=== PATIENT | female | born 1970 | race Caucasian/White ===

== ENCOUNTER 2023-02-18 21:58 | Emergency (ER) | payer OTHER, SELFPAY ==
[2023-02-18 22:12] VITALS: BP 164/96; PULSE 109; RESP 18; TEMP 37.1; O2SAT 95; BMI 49.2
--- NOTE | 2023-02-18 23:11 | PC.NURSE ---
Pt states that she is a former smoker and gets bronchitis yearly but usually resolves with ATB but this time has not gotten any better. pt states that she is on her 3rd round of ATB and continues to have a dry, hacky cough. Pt states that she does have yellow nasal drainage.
--- NOTE | 2023-02-18 23:14 | XR_ITS ---
[facility] [place] [id number] Patient Name: HAKEEM SWAIN MRN: [id number] date: 1970 Sex: F Assigned Patient Location: ER Current Patient Location: ER Accession/Order Number: [id number] Exam Date: 02/18/2023 23:20 Report Date: 02/18/2023 23:40 At the request of: KRISTINE CHAN Procedure: XR chest 2V XR chest 2V 02/18/2023 11:20 PM EST CLINICAL INDICATION: Cough COMPARISON: 04/14/2019 TECHNIQUE: PA and lateral views of the chest. FINDINGS: There are no tubes or implants noted. The cardiomediastinal silhouette and pulmonary vasculature are within normal limits. No focal parenchymal opacities. No pneumothorax or pleural effusion. No displaced rib fractures. Osseous structures demonstrate degenerative changes. Soft tissues are grossly normal. XR/XR chest 2V IMPRESSION: No acute cardiopulmonary abnormality. Electronically authenticated by: YEHUDA MEREDITH Date: 02/18/2023 23:40
--- NOTE | 2023-02-18 23:40 | ED_ITS ---
HPI - URI/Sore Throat General Chief Complaint: Upper Respiratory Infection Stated Complaint: URTI Time Seen by Provider: 02/18/23 23:40 Source: patient Limitations: no limitations History of Present Illness HPI Narrative: presents complaining of ongoing cough for a month. 2 courses of antibiotics. Has improved but not resolved and now has sinus pressure and drainage. Not short of breath. No fever MD elicited complaint: Reports cough Related Data Home Medications Medication Instructions Recorded Confirmed albuterol sulfate 90 mcg/actuation inhalation 02/18/23 aerosol inhaler azithromycin 250 mg tablet mg 02/18/23 cefdinir 300 mg capsule mg 02/18/23 etodolac 200 mg capsule mg 02/18/23 fexofenadine 180 mg tablet mg 02/18/23 methocarbamol 750 mg tablet mg 02/18/23 solifenacin 10 mg tablet mg PO 02/18/23 zolpidem 10 mg tablet mg 02/18/23 Allergies Allergy/AdvReac Type Severity Reaction Status Date / Time No Known Drug Allergies Allergy Verified 02/18/23 22:15 Review of Systems ROS Status of ROS 10 or more systems reviewed and unremark able except as noted in history and below Exam Constitutional Vital Signs, click to edit/add: Last Vital Signs Temp 98.7 F 02/18/23 22:12 Pulse 109 H 02/18/23 22:12 Resp 18 02/18/23 22:12 BP 164/96 H 02/18/23 22:12 Pulse Ox 95 02/18/23 22:12 O2 Del Method Room Air 02/18/23 22:12 Common normals: no apparent distress, average body habitus, oriented x3 and no limitations Eye Common normals: PERRL and EOMs intact bilaterally Respiratory Common normals: normal respiratory effort and no retractions Cardio Common normals: regular rate, regular rhythm, S1 normal heart sound and S2 normal heart sound GI Common normals: Normal to inspection, nondistended, normoactive bowel sounds present, soft to palpation and non-tender Extremity Common normals: normal to inspection and full ROM Neuro Common normals: oriented x3, CN's II-XII intact bilaterally, moves all extremiti es and no focal motor deficits Psych Appearance: grossly normal Course Vital Signs Vital signs: Vital Signs Temperature 98.7 F 02/18/23 22:12 Pulse Rate 109 H 02/18/23 22:12 Respiratory Rate 18 02/18/23 22:12 Blood Pressure 164/96 H 02/18/23 22:12 Pulse Oximetry 95 02/18/23 22:12 Oxygen Delivery Method Room Air 02/18/23 22:12 Temperature 98.7 F 02/18/23 22:12 Pulse Rate 109 H 02/18/23 22:12 Respiratory Rate 18 02/18/23 22:12 Blood Pressure 164/96 H 02/18/23 22:12 Pulse Oximetry 95 02/18/23 22:12 Oxygen Delivery Method Room Air 02/18/23 22:12 MDM - URI/Sore Throat MDM Narrative Medical decision making narrative: patient presents complaining of sinus pressure and drainage. Treated with 2 courses of antibiotics for bronchitis. States she continues to cough despite the antibiotics. No headache or fever. cxray is clear. she was on a course of prednisone and states this did help while she was on it. Discussed plans to change antibiotics for her sinus pressure and drainage and restart prednisone for her cough. She is to follow up with her doctor for recheck Discharge Plan Discharge Chief Complaint: Upper Respiratory Infection Clinical Impression: Upper respiratory infection, Acute maxillary sinusitis Prescriptions / Home Meds: No Action etodolac 200 mg capsule azithromycin 250 mg tablet fexofenadine 180 mg tablet methocarbamol 750 mg tablet zolpidem 10 mg tablet albuterol sulfate 90 mcg/actuation HFA aerosol inhaler INHALATION cefdinir 300 mg capsule solifenacin 10 mg tablet PO Referrals: Lavon Simon MD [Primary Care Provider] - 1 week
[2023-02-18] MEDS: PREDNISONE 20 MG TABLET 40 MG PO (23:55)
[2023-02-18] MEDS: DOXYCYCLINE MONOHYDRATE 100 MG CAPSULE PO (23:55)
[2023-02-19 00:09] VITALS: BP 130/80; PULSE 89; RESP 18; O2SAT 98
== END 2023-02-19 00:08 | disposition home or self-care (01) ==
LOC: ER 22:11
PROVIDERS: Emergency Provider Internal Medicine; PCP Family Medicine
DX: J06.9 Acute upper respiratory infection, unspecified (principal); J01.00 Acute maxillary sinusitis, unspecified; Z79.899 Other long term (current) drug therapy
CPT/HCPCS: 71046; 99283

== ENCOUNTER 2023-03-16 16:09 | Emergency (ER) | payer OTHER, SELFPAY ==
--- OUTSIDE RECORDS SUMMARY | 2023-03-16 16:14 | XMS_ITS | CCD ---
Author Name Unknown Address [address] [place] [address] Organization [facility] Care Team Providers Care Studio Data Analyst Name Role Phone ENDER, MARYLIN Admitting Unavailable ENDER, MARYLIN Attending Unavailable NADERER, DR AIDAN Quezada Primary Care Unavailable ENDER, MARYLIN Admitting Unavailable ENDER, MARYLIN Attending Unavailable NADERER, DR AIDAN Quezada Primary Care Unavailable ENDER, MARYLIN Admitting Unavailable ENDER, MARYLIN Attending Unavailable NADERER, DR AIDAN Quezada Primary Care Unavailable NADERER, DR AIDAN Quezada Primary Care Unavailable HAY, DR PEREZ Admitting Unavailable HAY, DR PEREZ Attending Unavailable HAY, DR PEREZ Consulting Unavailable ENDER, MARYLIN Admitting Unavailable ENDER, MARYLIN Attending Unavailable NADERER, DR AIDAN Quezada Primary Care Unavailable ENDER, MARYLIN Consulting Unavailable WORKMAN, SUMMER M Attending Unavailable WORKMAN, SUMMER M Referring Unavailable Workman, Summer M Attending Unavailable Workman, Summer M Admitting Unavailable NadererAidan Primary Care Unavailable Problems Active Problems Problem Classification Problem Date Documented Da te Episodic/Chronic Other lower respiratory disease (1 source) Shortness of breath; Translations: [Shortness of breath] Onset: 01-31-2023 Episodic Other nutritional; endocrine; and metabolic disorders (1 source) Obesity, unspecified; Translations: [OBESITY UNSPECIFIED] Onset: 07-21-2021 Chronic Other nutritional; endocrine; and metabolic disorders (1 source) Body mass index (BMI) 40.0-44.9, adult; Translations: [BODY MASS INDEX BMI 40.0-44.9 ADULT] Onset: 07-21-2021 Chronic Unclassified (3 sources) LOW BACK PAIN, UNSPECIFIED; Translations: [LOW BACK PAIN, UNSPECIFIED] Onset: 08-01-2021 Unclassified (2 sources) CONTACT W/AND (SUSP) EXPOS COVID-19; Translations: [CONTACT W/AND (SUSP) EXPOS COVID-19] Onset: 02-28-2021 Viral infection (1 source) COVID-19; Translations: [COVID-19] Onset: 02-28-2021 Past or Other Problems Problem Classification Problem Date Documented Da te Episodic/Chronic Other non-traumatic joint disorders (1 source) Pain in left knee; Translations: [PAIN IN LEFT KNEE] Onset: 07-21-2021 Episodic Other non-traumatic joint disorders (1 source) Pain in right knee; Translations: [PAIN IN RIGHT KNEE] Onset: 07-21-2021 Episodic Unclassified (1 source) LOW BACK PAIN, UNSPECIFIED; Translations: [LOW BACK PAIN, UNSPECIFIED] Onset: 08-01-2021 Unclassified (1 source) CONTACT W/AND (SUSP) EXPOS COVID-19; Translations: [CONTACT W/AND (SUSP) EXPOS COVID-19] Onset: 02-26-2021 Results Test Name Value Interpretation Reference Range Facility D-Dimer High Sensitivityon 1 04-03-2022 D-Dimer High Sensitivity < 200 Normal 0-243 [facility] Comment on above: Result Comment: The reference range for D-dimer is <243 ng/mL D-dimer units. D-dimer results must be used in conjunction with a clinical pretest probability (PTP) assessment model for deep vein thrombosis (DVT) and pulmonary embolism (PE). Results <230 ng/mL d-dimer units can be used as a negative predictor in patients with low or moderate probability for DVT/PE. Results above the exclusion threshold of 230 ng/ml D-dimer units for DVT/PE may indicate the need for further diagnostic testing. D-Dimer can be increased in hospitalized patients due to co-morbid conditions. A hematocrit value greater than 55% may lead to inaccurate results in coagulation testing. Patients having hematocrit values >55% require a special collection tube for coagulation studies. Please contact the laboratory at [phone] for redraw instructions. PERFORMED BY: [facility] [place] [id number] PATHOLOGIST AGRICULTURAL TECHNICIAN RAZ MATOS M.D. Performed By: #### D DIMER #### [address] XR CHEST 2 VIEWSon 3 XR CHEST 2 VIEWS EXAMINATION/TECHNIQU E: XR CHEST 2 VIEWS HISTORY: Cough COMPARISON: None RESULT: No focal consolidation. No pleural effusion. No pneumothorax. Normal cardiomediastinal silhouette. No acute osseous findings. IMPRESSION: No acute radiographic abnormality. ELECTRONICALLY SIGNED BY: Narendra Crane MD Normal Not Available [facility]-19 PCR ([facility]on SARS-CoV-2 (COVID-19) RNA CALEB+probe Ql (Unsp spec) Detected Critically abnormal NOT DETECTED [facility] Comment on above: Result Comment: This test is not yet approved or cleared by the [place] FDA. When there are no FDA-approved or cleared tests available, and other criteria are met, FDA can make tests available under an emergency access mechanism called an Emergency Use Authorization (EUA). The EUA for this test is supported by the Administrative Intern of Health and Human Service's (HHS's) declaration that circumstances exist to justify the emergency use of in vitro diagnostics for the detection and/or diagnosis of the virus that causes COVID-19. This EUA will remain in effect (meaning this test can be used) for the duration of the COVID-19 declaration justifying emergency of IVDs, unless it is terminated or revoked by FDA (after which the test may no longer be used). Performed By: #### C COUNTS INCLUDE 234 BEDS AT THE [facility] #### [facility] [address] [place] [address] Dr. Abraham Fournier Lab Reportson 09-15-2019 Lab Reports [id number] 0CD:127 Normal [facility] Coding Summary.on 09-13-2019 Coding Summary. CODING DATE: 09/13/2019 FINAL [facility] STATUS: Home (Routine DC) PAYOR: Medicaid EA DESCRIPTION 0999 UNASSIGNED ADMIT DX: REASON FOR VISIT DX: Z01.812 Encounter for preprocedural laboratory examination FINAL DX: PRINCIPAL: Z01.812 Encounter for preprocedural laboratory examination SECONDARY: Z11.59 Encounter for screening for other viral diseases R19.4 Change in bowel habit R10.84 Generalized abdominal pain PYMT PROC EAPG STAT DESCRIPTION DOCTOR NAME DATE NOTE: The code number assigned matches the documented diagnosis and / or procedure in the patient's chart. However, the narrative phrase printed from the coding software may appear abbreviated, or result in slightly different terminology. Coded By: Kaleigh Clinton Date Saved: 09/13/2019 12:27 pm [facility] Physician Orderon 09-05-2019 Physician Order [id number] 0CD:127 [facility] Reference Lab Reporton 09-04 Reference Lab Report [id number] .00CD:127 [facility] Pre-Authorization for Medica l Treatmenton 08-25-2019 Pre-Authorization for Medical Treatment [id number] CD:127 [facility] Ambulatory Clinical Summaryo n 08-13-2019 Ambulatory Clinical Summary {[id number]}CD:[id number] [facility] Consenton 08-13-2019 Consent [id number] 0CD:127 [facility] Physician Orderon 08-13-2019 Physician Order [id number] 0CD:127 [facility] Encounters Encounter Date Encounter Type Care Provider Facility Start: 01-31-2023 End: 02-01-2023 ambulatory SUMMER M WORKMAN Not Available Start: 11-11-2021 ambulatory MARYLIN ENDER Facility :[facility] Start: 08-01-2021 End: 08-16-2021 ambulatory MARYLIN ENDER Facility:[facility] Start: 07-22-2021 ambulatory MARYLIN ENDER Facility :[facility] Start: 07-15-2021 End: 07-16-2021 ambulatory MARYLIN ENDER Facility:[facility] Start: 02-26-2021 End: 02-26-[address] AIDAN LAM Facility:[facility] Payers Date Payer Category Payer Self-pay 1970 Unknown [id number] 2.16.84 [id number] 1970 Unknown [id number] 2.16.84 [id number] 1970 Unknown [id number] 2.16.84 [id number] 1970 Unknown [id number] 2.16.84 [id number] 1970 Unknown [id number] 2.16.84 [id number] 1970 Unknown [id number] 1970 Unknown [id number] [id number] 1958 Self-pay [id number] 1958 Unknown [id number] Unknown [id number] 2.16.8 [id number] Summary Purpose Family History No Family History Records FoundNo Family History Records FoundNo Family History Records FoundNo Family History Records Found Advance Directives No Advanced Directives Records FoundNo Advanced Directives Records FoundNo Advanced Directives Records FoundNo Advanced Directives Records Found Additional Source Comments INFORMATION SOURCE (unrecogn ized section and content) DATE CREATED AUTHOR 10/28/2019 [facility] DATE CREATED AUTHOR AUTHOR'S ORGANIZ ATION 12/06/2021 [facility] DATE CREATED AUTHOR AUTHOR'S ORGANIZ ATION 02/05/2023 [facility] DATE CREATED AUTHOR AUTHOR'S ORGANIZ ATION 02/09/2023 [facility] FOR RECORDS PERTAINING TO PATIENTS WHO ARE OR HAVE BEEN ENROLLED IN A CHEMICAL DEPENDENCY/SUBSTANCEABUSE PROGRAM, SOME INFORMATION MAY BE OMITTED. This clinical summary was aggregated from multiple sources. Caution should be exercised in using it in the provision of clinical care. This summary normalizes information from multiple sources, and as a consequence, information in this document may materially change the coding, format and clinical context of patient data. In addition, data may be omitted in some cases. CLINICAL DECISIONS SHOULD BE BASED ON THE PRIMARY CLINICAL RECORDS. [facility] [employer] [facility]. provides no warranty or guarantee of the accuracy or completeness of information in this document.
[2023-03-16 16:18] VITALS: BP 164/98; PULSE 75; RESP 16; TEMP 36.5; O2SAT 98; BMI 49.7
--- NOTE | 2023-03-16 16:26 | XR_ITS ---
[facility] [place] [id number] Patient Name: HAKEEM SWAIN MRN: [id number] date: 1970 Sex: F Assigned Patient Location: ER Current Patient Location: ED.MAIN Accession/Order Number: [id number] Exam Date: 03/16/2023 16:43 Report Date: 03/16/2023 17:06 At the request of: MICHAEL VALENCIA Procedure: XR hip LT 2V w/ pelvis EXAM: XR hip LT 2V w/ pelvis, XR knee LT 2V HISTORY: fall COMPARISON: None. TECHNIQUE: 3 views of the left hip and knee FINDINGS: There is no acute fracture or dislocation. No cortical erosion. The soft tissues are unremarkable. No joint effusion. XR/XR hip LT 2V w/ pelvis IMPRESSION: No acute fracture of the left hip and knee. Electronically authenticated by: RUSSELL OSLIS Date: 03/16/2023 17:06
--- NOTE | 2023-03-16 16:27 | XR_ITS ---
[facility] [place] [id number] Patient Name: HAKEEM SWAIN MRN: [id number] date: 1970 Sex: F Assigned Patient Location: ER Current Patient Location: ED.MAIN Accession/Order Number: [id number] Exam Date: 03/16/2023 16:43 Report Date: 03/16/2023 17:06 At the request of: MICHAEL VALENCIA Procedure: XR knee LT 2V EXAM: XR hip LT 2V w/ pelvis, XR knee LT 2V HISTORY: fall COMPARISON: None. TECHNIQUE: 3 views of the left hip and knee FINDINGS: There is no acute fracture or dislocation. No cortical erosion. The soft tissues are unremarkable. No joint effusion. XR/XR knee LT 2V IMPRESSION: No acute fracture of the left hip and knee. Electronically authenticated by: RUSSELL SOLIS Date: 03/16/2023 17:06
[2023-03-16] MEDS: KETOROLAC TROMETHAMINE 60 MG/2 ML VIAL IM (16:36)
--- NOTE | 2023-03-16 17:05 | ED.FALL1 ---
Documented by User: Sheela Barnesey 03/16/23 17:11 HPI - Fall General Chief Complaint: Fall Stated Complaint: FELL AT WORK Time Seen by Provider: 03/16/23 16:19 Source: patient and family Mode of arrival: Wheelchair Limitations: no limitations History of Present Illness HPI Narrative: 52-year-old female presents to the emergency room chief complaint of left hip and knee pain. She states she was getting out of the car [employer] and slipped. She states her left leg gave out while her right leg was still inside the car. She felt a pop in her leg. She is able to sit and stand. She has no acute abnormalities initially. Denies striking her head or any other abnormalities. Related Data Home Medications Medication Instructions Recorded Confirmed etodolac 200 mg capsule 200 mg PO BID 02/18/23 03/16/23 fexofenadine 180 mg tablet 180 mg PO DAILY 02/18/23 03/16/23 methocarbamol 750 mg tablet 750 mg PO BID 02/18/23 03/16/23 solifenacin 10 mg tablet 10 mg PO DAILY 02/18/23 03/16/23 zolpidem 10 mg tablet 10 mg PO BEDTIME 02/18/23 03/16/23 Previous Rx's Medication Instructions Recorded methocarbamol 500 mg tablet 500 mg PO Q8H PRN pain #14 tabs 03/16/23 Allergies Allergy/AdvReac Type Severity Reaction Status Date / Time No Known Drug Allergies Allergy Verified 02/18/23 22:15 Review of Systems ROS Narrative All Systems are negative except as noted/marked. PFSH PFSH Social History Smoking status: Former smoker Exam Narrative Exam Narrative: Nurses note and vital signs reviewed and patient is not hypoxic. General: The patient appears well and in no apparent distress. Patient is resting comfortably on cart. Skin: Warm, dry, no pallor noted. There is no rash noted. Head: Normocephalic, atraumatic Eye: Normal conjunctiva, no drainage, EOMI. PERRL Ears, Nose, Mouth, and Throat: oral mucosa is moist. Nares patent. Mouth without vesicles. Ear canals patent. Tm's without Erythema Cardiovascular: Regular Rate and Rhythm Respiratory: Patient is in no distress, no accessory muscle use, lungs are clear to auscultation, no wheezing, rales or rhonchi Back: non-tender, no CVA tenderness bilaterally to percussion. Musculoskeletal: No acute abdomen on his left lower extremity, moves all extremities within normal limits no leg shortening noted no swelling or deformity to the hip or left knee. Ankle within normal limits remainder of extremities are unremarkable. Neurological: A&O x4, normal speech Psychiatric: Cooperative Constitutional Vital Signs, click to edit/add: Last Vital Signs Temp 97.7 F 03/16/23 16:18 Pulse 75 03/16/23 16:18 Resp 16 03/16/23 16:18 BP 164/98 H 03/16/23 16:18 Pulse Ox 98 03/16/23 16:18 O2 Del Method Room Air 03/16/23 16:18 Course Vital Signs Vital signs: Vital Signs Temperature 97.7 F 03/16/23 16:18 Pulse Rate 75 03/16/23 16:18 Respiratory Rate 16 03/16/23 16:18 Blood Pressure 164/98 H 03/16/23 16:18 Pulse Oximetry 98 03/16/23 16:18 Oxygen Delivery Method Room Air 03/16/23 16:18 Temperature 97.7 F 03/16/23 16:18 Pulse Rate 75 03/16/23 16:18 Respiratory Rate 16 03/16/23 16:18 Blood Pressure 164/98 H 03/16/23 16:18 Pulse Oximetry 98 03/16/23 16:18 Oxygen Delivery Method Room Air 03/16/23 16:18 MDM - Fall MDM Narrative Medical decision making narrative: Patient presented here with a chief complaint of a fall. She fell out of her car while getting going into work. X-rays of the left hip and knee were performed and negative by radiology. Patient was medicated here for pain with Toradol. Patient be discharged home and encouraged follow-up with occupational health. Patient be given a prescription for muscle relaxant. She's told to use Tylenol Motrin and ice at home. Patient agrees with plan of care. Medical Records Attestation: I reviewed the patient's medical records. Imaging Data hip: Attestation: I have reviewed the pertinent imaging results. My impression: neg Radiologist's impression: ITS Impressions Hip/Pelvis X-Ray 03/16/23 16:26 IMPRESSION: No acute fracture of the left hip and knee. Electronically authenticated by: RUSSELL SOLIS Date: 03/16/2023 17:06 Knee X-Ray 03/16/23 16:27 IMPRESSION: No acute fracture of the left hip and knee. Electronically authenticated by: RUSSELL SOLIS Date: 03/16/2023 17:06 Discharge Plan Discharge Chief Complaint: Fall Clinical Impression: Knee sprain, Fall Patient Disposition: Home, Self-Care Time of Disposition Decision: 16:59 Condition: Good Mode of Transportation: Private Vehicle Prescriptions / Home Meds: New methocarbamol 500 mg tablet 500 mg PO Q8H PRN (Reason: pain) Qty: 14 0RF No Action etodolac 200 mg capsule 200 mg PO BID fexofenadine 180 mg tablet 180 mg PO DAILY methocarbamol 750 mg tablet 750 mg PO BID zolpidem 10 mg tablet 10 mg PO BEDTIME solifenacin 10 mg tablet 10 mg PO DAILY Instructions: Knee Sprain (ED), P.R.I.C.E. Treatment (ED), Fall Prevention (ED) Additional Instructions: follow up with occupational health Stand Alone Forms: Portal Instructions Referrals: Lavon Simon MD [Primary Care Provider] - 1 week Discharge Date/Time: 03/16/23 17:18 Documented by User: Rashad Patel MD 03/16/23 18:36 HPI - Fall General Chief Complaint: Fall Stated Complaint: FELL AT WORK Time Seen by Provider: 03/16/23 16:19 Related Data Home Medications Medication Instructions Recorded Confirmed etodolac 200 mg capsule 200 mg PO BID 02/18/23 03/16/23 fexofenadine 180 mg tablet 180 mg PO DAILY 02/18/23 03/16/23 methocarbamol 750 mg tablet 750 mg PO BID 02/18/23 03/16/23 solifenacin 10 mg tablet 10 mg PO DAILY 02/18/23 03/16/23 zolpidem 10 mg tablet 10 mg PO BEDTIME 02/18/23 03/16/23 Previous Rx's Medication Instructions Recorded methocarbamol 500 mg tablet 500 mg PO Q8H PRN pain #14 tabs 03/16/23 Allergies Allergy/AdvReac Type Severity Reaction Status Date / Time No Known Drug Allergies Allergy Verified 02/18/23 22:15 PFSH PFSH Social History Smoking status: Former smoker Exam Constitutional Vital Signs, click to edit/add: Last Vital Signs Temp 97.7 F 03/16/23 16:18 Pulse 75 03/16/23 16:18 Resp 16 03/16/23 16:18 BP 164/98 H 03/16/23 16:18 Pulse Ox 98 03/16/23 16:18 O2 Del Method Room Air 03/16/23 16:18 Course Vital Signs Vital signs: Vital Signs Temperature 97.7 F 03/16/23 16:18 Pulse Rate 75 03/16/23 16:18 Respiratory Rate 16 03/16/23 16:18 Blood Pressure 164/98 H 03/16/23 16:18 Pulse Oximetry 98 03/16/23 16:18 Oxygen Delivery Method Room Air 03/16/23 16:18 Temperature 97.7 F 03/16/23 16:18 Pulse Rate 75 03/16/23 16:18 Respiratory Rate 16 03/16/23 16:18 Blood Pressure 164/98 H 03/16/23 16:18 Pulse Oximetry 98 03/16/23 16:18 Oxygen Delivery Method Room Air 03/16/23 16:18 MDM - Fall MDM Narrative Medical decision making narrative: Patient presented here with a chief complaint of a fall. She fell out of her car while getting going into work. X-rays of the left hip and knee were performed and negative by radiology. Patient was medicated here for pain with Toradol. Patient be discharged home and encouraged follow-up with occupational health. Patient be given a prescription for muscle relaxant. She's told to use Tylenol Motrin and ice at home. Patient agrees with plan of care. I, Dr Patel, have reviewed the above progress note and course of action in the ER; agree with the above. I have personally seen this patient, gone over history and physical, and discussed disposition and treatment plan with the patient. Imaging Data hip: Radiologist's impression: ITS Impressions Hip/Pelvis X-Ray 03/16/23 16:26 IMPRESSION: No acute fracture of the left hip and knee. Electronically authenticated by: RUSSELL SOLIS Date: 03/16/2023 17:06 Knee X-Ray 03/16/23 16:27
== END 2023-03-16 17:18 | disposition home or self-care (01) ==
PROVIDERS: Emergency Provider Emergency Medicine; PCP Family Medicine
DX: S83.92XA Sprain of unspecified site of left knee, initial encounter (principal); W01.0XXA Fall on same level from slipping, tripping and stumbling without subsequent striking against object, initial encounter
CPT/HCPCS: 73502; 73560; 96372; 99284; J1885

== ENCOUNTER 2025-01-17 10:40 | Emergency (ER) | payer BC, SELFPAY ==
[2025-01-17 10:46] VITALS: BP 187/114; PULSE 86; TEMP 37; O2SAT 98; BMI 50.8
--- NOTE | 2025-01-17 11:08 | XR_ITS ---
[facility] [place] [id number] Patient Name: HAKEEM SWAIN MRN: [id number] date: 1970 Sex: F Assigned Patient Location: ER Current Patient Location: ED.MAIN Accession/Order Number: [id number] Exam Date: 01/17/2025 11:19 Report Date: 01/17/2025 11:36 At the request of: AJ GUZMAN MD Procedure: XR knee LT 4V LEFT KNEE - 4 views CLINICAL HISTORY: pain COMPARISON: Left knee 03/16/2023 FINDINGS: Small joint effusion. No acute bony process. Joint spaces appear maintained. XR/XR knee LT 4V IMPRESSION: SMALL JOINT EFFUSION. NO ACUTE BONY PROCESS IS SEEN. Impression dictated by: Musa Ragsdale Jr., D.O. 01/17/2025 11:36 AM Dictation Location: [place] [id number] Electronically authenticated by: [id number] Y Date: 01/17/2025 11:36
--- NOTE | 2025-01-17 11:08 | ED.EXTPRO1 ---
HPI - Extremity Problem General Chief complaint: Extremity Problem, Nontraumatic Stated complaint: L KNEE PAIN Time Seen by Provider: 01/17/25 10:58 Source: patient Mode of arrival: walk-in Limitations: no limitations History of Present Illness HPI Narrative: Patient presenting to us with a left knee pain that been going on at least for few weeks the patient mentioned that she had no fall or trauma but she has not been able to put weight on her left knee because of the pain and it is getting worse, she was supposed to get an outpatient x-ray but she did not have time for that The patient denies any other concerns and she has been taking her ibuprofen at home with no improvement Related Data Home Medications ?Medication ?Instructions ?Recorded ?Confirmed fexofenadine 180 mg tablet 180 mg PO DAILY 02/18/23 01/17/25 methocarbamol 750 mg tablet 750 mg PO BID 02/18/23 01/17/25 solifenacin 10 mg tablet 10 mg PO DAILY 02/18/23 01/17/25 zolpidem 10 mg tablet 10 mg PO BEDTIME 02/18/23 01/17/25 zolpidem 10 mg tablet mg 01/17/25 Previous Rx's ?Medication ?Instructions ?Recorded diclofenac sodium 75 mg 75 mg PO Q12H PRN pain #20 tabs 01/17/25 tablet,delayed release Allergies Allergy/AdvReac Type Severity Reaction Status Date / Time No Known Drug Allergies Allergy Verified 01/17/25 10:49 Review of Systems ROS Status of ROS 10 or more systems reviewed and unremarkable except as noted in history and below PFSH PFSH Social History Smoking status: Former smoker Little interest or pleasure in doing things: not at all Feeling down, depressed, or hopeless: not at all Exam Narrative Exam Narrative: Nurses notes and vital signs reviewed and patient is not hypoxic. General: Well-appearing and in no apparent distress. Skin: Warm, dry, no pallor noted. Left lower extremity: The patient have some tenderness upon palpation of the posterior aspect of the left knee with full range of movement preserved there is a small effusion in the left knee. No vascular injury detected no ecchymosis no open wound no redness no hotness no tenderness on palpation of the anterior of the knee including the patella Neurological: A&O x4. No cranial nerve dysfunction observed. No truncal ataxia. Moves all extremities. Sensation intact. Psychiatric: Cooperative and interactive. Normal mood and affect. Constitutional Vital Signs, click to edit/add: Last Vital Signs Temp 98.6 F 01/17/25 10:46 Pulse 86 01/17/25 10:46 Resp 20 01/17/25 10:46 BP 187/114 H 01/17/25 10:46 Pulse Ox 98 01/17/25 10:46 O2 Del Method Room Air 01/17/25 10:46 Course Vital Signs Vital signs: Vital Signs Temperature 98.6 F 01/17/25 10:46 Pulse Rate 86 01/17/25 10:46 Respiratory Rate 20 01/17/25 10:46 Blood Pressure 187/114 H 01/17/25 10:46 Pulse Oximetry 98 01/17/25 10:46 Oxygen Delivery Method Room Air 01/17/25 10:46 Temperature 98.6 F 01/17/25 10:46 Pulse Rate 86 01/17/25 10:46 Respiratory Rate 20 01/17/25 10:46 Blood Pressure 187/114 H 01/17/25 10:46 Pulse Oximetry 98 01/17/25 10:46 Oxygen Delivery Method Room Air 01/17/25 10:46 MDM - Extremity (Nontraumatic) MDM Narrative Medical decision making narrative: X-ray of the patient's left knee showed small effusion in addition to no acute pathology The patient provided with a knee immobilizer as well as Toradol in the ER with etodolac stopped and she was started on Voltaren Patient referred to orthopedic as outpatient The patient to follow-up with the primary care within 2 to 3 days and to come back to the ER in case of any worsening of the current symptoms or any new symptoms or concerns Discharge Plan Discharge Chief Complaint: Extremity Problem, Nontraumatic Clinical Impression: Acute knee pain Patient Disposition: Home, Self-Care Time of Disposition Decision: 11:50 Condition: Good Prescriptions / Home Meds: New diclofenac sodium 75 mg tablet,delayed release (DR/EC) 75 mg PO Q12H PRN (Reason: pain) Qty: 20 0RF Discontinued etodolac 200 mg capsule 200 mg PO BID No Action fexofenadine 180 mg tablet 180 mg PO DAILY methocarbamol 750 mg tablet 750 mg PO BID zolpidem 10 mg tablet 10 mg PO BEDTIME solifenacin 10 mg tablet 10 mg PO DAILY zolpidem 10 mg tablet Print Language: Georgian Instructions: Knee Pain (ED) Referrals: NARGIS BAUMANN [Physician, Orthopedics] - 1 week Lavon Simon MD [Primary Care Provider, Family Practice] - 1 week
[2025-01-17] MEDS: KETOROLAC TROMETHAMINE 60 MG/2 ML VIAL IM (11:38)
--- OUTSIDE RECORDS SUMMARY | 2025-01-17 11:38 | XMS_ITS | CCD ---
Author Organization [facility] CliniSyks Care Team Providers Care Tape Recorder Repairer Name Role Phone ENDER, MARYLIN Admitting Unavailable ENDER, MARYLIN Attending Unavailable NADERER, DR LAVON Quezada Primary Care Unavailable ENDER, MARYLIN Admitting Unavailable ENDER, MARYLIN Attending Unavailable NADERER, DR LAVON Quezada Primary Care Unavailable ENDER, MARYLIN Admitting Unavailable ENDER, MARYLIN Attending Unavailable NADERER, DR LAVON Quezada Primary Care Unavailable NADERER, DR LAVON Quezada Primary Care Unavailable HAY, DR PEREZ Admitting Unavailable HAY, DR PEREZ Attending Unavailable HAY, DR PEREZ Consulting Unavailable ENDER, MARYLIN Admitting Unavailable ENDER, MARYLIN Attending Unavailable NADERER, DR LAVON Quezada Primary Care Unavailable ENDER, MARYLIN Consulting Unavailable Moisés Gee Attending Unavailable Moisés Gee Admitting Unavailable Lavon Lam Primary Care Unavailable LAVON LAM Attending Unavailable MOISÉS GEE Attending Unavailable MOISÉS GEE Referring Unavailable Lavon Lam MD Primary Care Provider Lavon Lam MD Unavailable Lavon Lam MD Unavailable Lavon Lam MD Primary Care Provider [phone] Lavon Lam MD Attending Provider [phone] Medications Current Medications MedicationDrug Class(es)DatesSig (Normalized)Sig (Original)albuterol 0.83 mg/ml inhalation solution (11 sources)beta2-Adrenergic AgonistStart: 68-96-3595mxpl 2.5 mg by inhalation every four hours as neededAlbuterol Sulfate 2.5 mg /3 mL (0.083 %) solution for nebulization Active 2.5 MG INHALATION Every 4hours as needed November 19, 2024 12:00am Complies with drug therapyStart: 63-82-4104kgsn 1 puff(s) by inhalation every four hours as neededAlbuterol Sulfate 90 mcg/actuation HFA aerosol inhaler Active 2 PUFF INHALATION Every 4 hours as needed November 19, 2024 12:00am Complies with drug therapyStart: 35-64-4819mtjkgptcf (2.5 MG/3ML) 0.083% nebulizer solution Indications: Chronic obstructive pulmonary disease, unspecified COPD type (CMS/HCC) Take 3 mL (2.5 mg) by nebulization every 4 (four) hours if needed for wheezing. 100 mL 3 01/23/2023 ActiveStart: 01-23-2023 End: 33-51-3694wlcb 2 puff(s) by inhalation every four hours for wheezing albuterol HFA 90 mcg/act inhaler Indications: Chronic obstructive pulmonary disease, unspecified COPD type (CMS/HCC) Inhale 2 puffs every 4 (four) hours if needed for wheezing. 18 g 2 01/23/2023 Activeetodolac 200 mg oral capsule (7 sources)Nonsteroidal Anti-inflammatory DrugStart: 11-19-2024 End: 85-60-5616rbau 1 capsule by mouth twice dailyEtodolac 200 mg capsule Active 200 MG PO Twice daily 60 November 24, 2024 2:30pm Complies with drug therapy Start: 09-17-2023 End: 42-10-4357imcr 1 capsule by mouth in the morningetodolac (Lodine) 200 MG capsule Indications: Epigastric pain Take 1 capsule (200 mg) by mouth in the morning and 1 capsule (200 mg) before bedtime. 60 capsule 09/17/2023 09/16/2024 Activefexofenadine hydrochloride 180 mg oral tablet (7 sources)Histamine-1 Receptor AntagonistStart: 11-19-2024 End: 81-26-6207qnru 1 tablet by mouth once dailyFexofenadine 180 mg tablet Active 180 MG PO Daily November 24, 2024 2:28pm Complies with drugtherapy Start: 88-09-0628pucp 1 tablet by mouth once dailyfexofenadine (Yane) 180 MG tablet Indications: Seasonal allergic rhinitis due to pollen 1 PO daily 30 tablet 5 12/24/2023 ActiveStart: 34-64-4784gaau 1 tablet by mouth once daily fexofenadine (Yane) 180 MG tablet Indications: Seasonal allergic rhinitis due to pollen 1 PO daily 30 tablet 5 06/06/2023 Activefluticasone propionate 0.05 mg/actuat metered dose nasal spray (1 source)CorticosteroidStart: 63-96-0363foww 1 spray(s) nasal route once daily Fluticasone Propionate 50 mcg/actuation spray,suspension Active 2 SPRAY INTRANASAL Daily November 19, 2024 12:00am administer into each nostril Complies with drug therapymethocarbamol 750 mg oral tablet (6 sources)Muscle RelaxantStart: 70-59-3126vovf 1 tablet by mouth three times daily as neededMethocarbamol 750 mg tablet Active 750 MG PO Three times daily as needed for muscle spasns November 19, 2024 12:00am Complies with drug therapy Start: 76-55-3106msxm 1 tablet by mouth three times daily as needed for muscle spasmsmethocarbamol (Robaxin) 750 MG tablet Indications: Fibromyalgia Take 1 tablet by mouth three times daily as needed for muscle spasm 90 tablet 05/29/2024 ActiveStart: 44-58-2517cdgi 1 tablet by mouth three times daily as needed for muscle spasmsmethocarbamol (Robaxin) 750 MG tablet Indications: Fibromyalgia Take 1 tablet by mouth three times daily as needed for muscle spasm 90 tablet 03/17/2024 ActiveStart: 16-56-3928pfwz 1 tablet by mouth three times daily as needed for muscle spasmsmethocarbamol (Robaxin) 750 MG tablet Indications: Fibromyalgia Take 1 tablet (750 mg) by mouth 3 (three) times a day as needed for muscle spasms 90 tablet 2 09/17/2023 Activesolifenacin succinate 10 mg oral tablet (8 sources)Cholinergic Muscarinic AntagonistStart: 11-19-2024 End: 87-07-9233hesh 1 tablet by mouth once dailySolifenacin 10 mg tablet Active 10 MG PO Daily November 24, 2024 2:27pm Complies with drug therapyStart: 12-17-2023 End: 38-47-9684ahfd 1 tablet by mouth once dailysolifenacin (VESIcare) 10 MG tablet Indications: Female stress incontinence Take 1 tablet (10 mg) by mouth Daily 30 tablet 5 01/23/2024 ActiveStart: 50-41-5870dkrj 1 tablet by mouth once dailysolifenacin (VESIcare) 10 MG tablet Indications: Female stress incontinence Take 1 tablet (10 mg) by mouth Daily 30 tablet 5 07/02/2023 Activezolpidem tartrate 10 mg oral tablet (11 sources)gamma-Aminobutyric Acid-ergic AgonistStart: 11-19-2024 End: 74-22-1109wxoz 1 tablet by mouth once daily at bedtime as needed for sleep Zolpidem 10 mg tablet Active 10 MG PO Daily at bedtime as needed for sleep November 24, 2024 2:28pm Complies with drug therapyStart: 11-27-3181lkvl 1 tablet by mouth at bedtimezolpidem (Ambien) 10 MG tablet Indications: Insomnia, unspecified , Persistent insomnia TAKE 1 TABLET BY MOUTH AT BEDTIME 30 tablet 2 06/23/2024 ActiveStart: 01-28-2024 End: 08-89-4749vzvn 1 tablet by mouth at bedtimezolpidem (Ambien) 10 MG tablet Indications: Insomnia, unspecified , Persistent insomnia TAKE 1 TABLET BY MOUTH AT BEDTIME 30 tablet 1 04/21/2024 06/23/2024 DiscontinuedStart: 79-36-9434nrro 1 tablet by mouth at bedtimezolpidem (Ambien) 10 MG tablet Indications: Insomnia, unspecified , Persistent insomnia TAKE 1 TABLET BY MOUTH AT BEDTIME 30 tablet 2 10/30/2023 ActiveStart: 08-02-2023 End: 07-99-0138latd 1 tablet by mouth at bedtimezolpidem (Ambien) 10 MG tablet Indications: Insomnia, unspecified , Persistent insomnia TAKE 1 TABLET BY MOUTH AT BEDTIME 30 tablet 2 01/28/2024 Active Problems Active Problems Problem ClassificationProblemDateDocumented DateEpisodic/ChronicAbdominal pain (6 sources)Epigastric pain; Translations: [Epigastric pain]Onset: 03-29-2023 69-06-9627CxyxadetNyqjvf neoplasm of uterus (6 sources)Intramural leiomyoma of uterus; Translations: [Intramural leiomyoma of uterus]Onset: 753896-54-4770FsvxbycrUxqxhwx obstructive pulmonary disease and bronchiectasis (6 sources)Chronic obstructive lung disease; Translations: [Chronic obstructive pulmonary disease, unspecified]Onset: 242499-90-5014PpvouwaFlpjxyqeu and duodenitis (6 sources)Chronic gastritis; Translations: [Unspecified chronic gastritis without bleeding]Onset: 804060-50-2319PdpyrsgVmpqqpmngqije symptoms and ill-defined conditions (7 sources)Female stress incontinence; Translations: [Stress incontinence (female) (male)]Onset: 048543-74-6155TcpeidtElrsfqsn; including migraine (6 sources)Migraine without aura, not refractory ; Translations: [Migraine without aura, not intractable, withstatus migrainosus]Onset: 05-07-2023 91-67-4442ArzanpoYyxjezscynzmj mental health disorders (6 sources)Primary insomnia; Translations: [Primary insomnia]Onset: 03-29-2023 95-93-4001QrdhwmyMhcquftcdnygqk (6 sources)Primary coxarthrosis, bilateral; Translations: [Bilateral primary osteoarthritis of hip]Onset: 188736-77-4594FngfslgSvooh connective tissue disease (6 sources)Fibromyalgia; Translations: [Fibromyalgia]Onset: EpisodicOther connective tissue disease (6 sources)Lateral epicondylitis of right humerus; Translations: [Lateral epicondylitis, right elbow]Onset: 350107-41-1342CfexowieXdecl gastrointestinal disorders (6 sources)Irritable bowel syndrome with diarrhea; Translations: [Irritable bowel syndrome with diarrhea]Onset: 487923-89-6673HjvlprfIlyna inflammatory condition of skin (6 sources)Rosacea; Translations: [Rosacea, unspecified]Onset: 03-29-2023 56-00-9671JmzaupwEtgac injuries and conditions due to external causes (6 sources)Hamstring injury; Translations: [Unspecified injury of muscle, fascia and tendon of the posterior muscle group at thigh level, left thigh, subsequent encounter]Onset: 605484-01-1134LusduydqMxnzh lower respiratory disease (1 source)Shortness of breath; Translations: [Shortness of breath]Onset: 45-63-4586UqtniorqVywqx non-traumatic joint disorders (7 sources)Pain in right knee; Translations: [Pain in joint, lower leg]Onset: 393266-96-9796IunmkbinAfoiz nutritional; endocrine; and metabolic disorders (1 source)Obesity, unspecified; Translations: [OBESITY UNSPECIFIED]Onset: 36-58-9368EoxnmktQipsw nutritional; endocrine; and metabolic disorders (1 source)Body mass index (BMI) 40.0-44.9, adult; Translations: [BODY MASS INDEX BMI 40.0-44.9 ADULT]Onset: 16-40-6453AgnptycByiuj nutritional; endocrine; and metabolic disorders (6 sources)Morbid obesity; Translations: [Morbid (severe) obesity due to excess calories]Onset: 479851-55-7420EtonfsiCasol upper respiratory disease (6 sources)Allergic rhinitis due to pollen; Translations: [Allergic rhinitis due to pollen]Onset: 115023-87-2664DrrwsboBtmqklvh codes; unclassified (6 sources)Obstructive sleep apnea syndrome; Translations: [Obstructive sleep apnea (adult) (pediatric)]Onset: 744141-03-7210RxxrvnnJavaswti codes; unclassified (4 sources)Insomnia; Translations: [Insomnia, unspecified]32-11-0507Sqfzjucx Residual codes; unclassified (5 sources)Persistent insomnia; Translations: [Insomnia, unspecified]01-26-2024 EpisodicSpondylosis; intervertebral disc disorders; other back problems (6 sources)Chronic back pain ; Translations: [Chronic lumbosacral pain]Onset: 818823-27-6592UqctgefyGxpbqqnguhta (3 sources)LOW BACK PAIN, UNSPECIFIED; Translations: [LOW BACK PAIN, UNSPECIFIED]Onset: 90-13-6619Kctyjgjnbplm (2 sources)CONTACT W/AND (SUSP) EXPOS COVID-19; Translations: [CONTACT W/AND (SUSP) EXPOS COVID-19]Onset: 89-29-1201Cmqsi infection (1 source)COVID-19; Translations: [COVID-19]Onset: 02-28-2021 Past or Other Problems Problem ClassificationProblemDateDocumented DateEpisodic/ChronicAllergic reactions (5 sources)Inflammatory dermatosis; Translations: [Dermatitis, unspecified] Onset: 05-07-2023 Resolved: 814232-07-4610UbosukqtJxukw non-traumatic joint disorders (1 source)Pain in left knee; Translations: [PAIN IN LEFT KNEE]Onset: 07-21-2021 EpisodicOther upper respiratory infections (5 sources)Acute upper respiratory infection; Translations: [Acute upper respiratory infection, unspecified]Onset: 03-29-2023 Resolved: 089688-90-1392DakcvcavZwqkzgtbsnkk (1 source)LOW BACK PAIN, UNSPECIFIED; Translations: [LOW BACK PAIN, UNSPECIFIED] Onset: 84-84-2486Vmftyuhwvsin (1 source)CONTACT W/AND (SUSP) EXPOS COVID-19; Translations: [CONTACT W/AND (SUSP) EXPOS COVID-19]Onset: 02-26-2021 Results Test NameValueInterpretationReference RangeFacilityD-Dimer High Sensitivityon 74-02-7120K-Dimer High Sensitivity< 060Kbqzeh1-485XqqmbiwkwSelect Medical [facility], AvonComment on above:Result Comment: The reference range for D-dimer is [...] coagulation studies. Please contact the laboratory at [phone] for redraw instructions. PERFORMED BY: [address] [address] PATHOLOGIST PHYSICIAN INTERVENTIONAL CARDIOLOGIST RAZ MATOS M.D.Performed By: #### DDIMER #### [place] [id number] USAXR CHEST 2 VIEWSon 52-35-3075JR CHEST 2 VIEWS EXAMINATION/TECHNIQUE: XR CHEST 2 VIEWS HISTORY: Cough COMPARISON: None RESULT: No focal consolidation. No pleural effusion. No pneumothorax. Normal cardiomediastinal silhouette. No acute osseous findings. IMPRESSION: No acute radiographic abnormality. ELECTRONICALLY SIGNED BY: Katheryn Cutler AvailableCovid-19 PCR ([facility])on 79-45-0334XQHL-CoV-2 (COVID-19) RNA CALEB+probe Ql (Unsp spec)Detected Critically abnormalNOT DETECTEDThe [facility]ency Hospital ToledoComment on above:Result Comment: This test is not yet approved or cleared by the [place] FDA. When there are no FDA-approved or cleared tests available, and other criteria are met, FDA can make tests available under an emergency access mechanism called an Emergency Use Authorization (EUA). The EUA for this test is supported by the [place] Operator of Health and Human Service's (HHS's) declaration [...] which the test may no longer be used).Performed By: #### [facility] #### [facility] [address] [place] [address] Dr. Abraham Camarillo Reportson 88-71-2599Ovx Reports [id number]#1.00CD:127[facility] Medical CenterCoding Summary.on 04-25-7997Jeepbq Summary.CODING DATE: 09/13/2019 FINAL [facility] STATUS: Home (Routine DC) PAYOR: Medicaid EAPG DESCRIPTION 0999 UNASSIGNED ADMIT DX: REASON FOR [...] By: Kaleigh Clinton Date Saved: 09/13/2019 12:27 [facility] HospitalPhys[facility] Order on 68-81-5874Rgntiuoty [id number]#1.00CD:[address] [place], [place] [address]Reference Lab Reporton 36-12-1990Gugbcpgia Lab [id number]#1.00CD:[address] [place], [place] [address]Pre-Authorization for Medical Treatmenton 75-21-1901Zyb- Authorization for Medical Treatment [id number]#1.00CD:[address] [place], [place] [address]Ambulatory Clinical Summaryon 36-98-1326Jsbqgzoshg Clinical Summary {y8-44-72-ps-j7-17-61-r9-h5-33-9t-2x-16-ec-14-2f}CD:974338MnqqtgFvmsxzKettering Health Behavioral Medical CenterConsenton 52-49-0976Edvvbva [id number]#1.00CD:[address] [place], [place] [address]Physician Orderon 92-16-1611Psvpwwrbq Order [id number]#1.00CD:[address] [place] [address] Vital Signs Date TimeVital SignValuePerforming HnlusgfumSmajmqmd14-41-8690 09:52-0400Body mkpejs466.64 cmLavon Lam MD Work Phone: [facility] [place]10-15-2025 09:52-0400 Body mass index (BMI) [Ratio]49.4 kg/m2Lavon Lam MD Work Phone: [facility] [place]10-15-2025 09:52-0400 Body nrinezmfiuo37.3 [degF]Lavon Lam MD Work Phone: [phone]10-15-2025 09:52-0400 Body .79 kgLavon Lam MD Work Phone: [phone] [place], [place] [address]16010-15-2025 09:52-0400 Diastolic blood mm[Hg]Lavon Lam MD Work Phone: [phone]10-15-2025 09:52-0400 Heart rate84 /minLavon Lam MD Work Phone: [phone] [place], [place] 4816010-15-2025 09:52-0400 Respiratory rate20 /Emerson Lam MD Work Phone: [phone] [place], [place] 4816010-15-2025 09:52-0400 SaO2% (BldA) [Mass fraction]97 %Lavon Lam MD Work Phone: [phone]10-15-2025 09:52-0400 Systolic blood mm[Hg]Lavon Lam MD Work Phone: [phone] Encounters Encounter DateEncounter TypeCare ProviderFacilityStart: 12-10-2024 End: 75-67-4081fuivigyfsoBfod Naderer MD Work Phone: [phone] [place] [address] Work Phone: Start: 12-10-2024 End: 46-14-6332Dcbuzrb encounter procedureLavon Lam MD-[facility] Family Medicine [place] Work Phone: Start: 06-23-2024 End: 60-76-3877TpjrbmMdeh Naderer MD Work Phone: noms CWM FMComment on above:Insomnia, unspecified; Persistent insomniaStart: 04-20-2024 End: 44-39-1252HfvtecCeou Naderer MD Work Phone: noms CWM FMComment on above:Insomnia, unspecified; Persistent insomniaStart: 01-26-2024 End: 39-39-6423TcqupiBmui Naderer MD Work Phone: NODG CWM FMComment on above:Insomnia, unspecified; Persistent insomniaStart: 01-23-2024 End: 08-67-4345BrsvasItsi Naderer MD Work Phone: noms CWM FMComment on above:Female stress incontinence Start: 10-28-2023 End: 96-73-9074HurxpjMvap Naderer MD Work Phone: NOJH CWM FMComment on above:Insomnia, unspecified; Persistent insomniaStart: 05-07-2023 End: 11-60-4319ipfelrkucbGTFM NADERERNot AvailableStart: 01-31-2023 End: 82-62-0265esezyhweppBqnfap M WorkmanFacility:[facility] Health Systemtart: 01-31-2023 End: 27-92-2339ckanagzavxBLGNJQ M WORKMANNot AvailableStart: 11-11-2021 ambulatoryDARIN SCRIBNERFacility:I2Xjrbz: 08-01-2021 End: 34-68-3933kidomxizbcHMAQI SCRIBNERFacility:Q2Chnmt: 53-95-8094hschgxnxnd MARYLIN SCRIBNERFacility:F6Snmvj: 07-15-2021 End: 18-96-3763adkcvqcizaNJHRL SCRIBNERFacility:L0Hpbxd: 02-26-2021 End: 55-19-6503fxufyunomuJV LAVON Quezada NADERERFacility:H1 Plan of Treatment DateCare ActivityDetailAuthorStart: 32-93-7899Ppwyneawe vaccinationInfluenza Vaccine (Season Ended)[facility] HealthcareStart: 01-28-2024 End: 01-34-3196Wenzida encounter ehuwfskxx56/02/2024 9:00 AM EST Office Visit [facility] [address] [place] [address] Lavon Lam MD [address] [place] [id number] [facility] FMStart: 21-33-5557Aeeoljtsp vaccinationInfluenza Vaccine (#1)[facility] HealthcareStart: 48-76-9178Snempysdr for malignant neoplasm of breastMammogram [facility] HealthcareStart: 52-89-5186Ehdkrdmef for malignant neoplasm of cervixNOMS HealthcareStart: 56-23-1787Vcpmjlmpe for malignant neoplasm of cervixPap Smear [facility] HealthcareStart: 92-05-4326Gmghfobhz for malignant neoplasm of colonNOMS HealthcareComprehensive metabolic 2000 panel - Serum or PlasmaSelect Medical Cleveland Clinic Rehabilitation Hospital, AvonMG Breast - bilateral ScreeningG[facility]den [facility] Immunizations Immunization DateImmunizationNotesCare ElzlsnwgUnerlylx21-53-1493cohjbagif virus vaccine, unspecified formulationLavon Lam MD Work Phone: [facility] Payers DatePayer CategoryPayerPolicy [id number] Valley HospitalBCBS Member Subscriber Plan / Payer (Effective 2023-Present) Name: Alexandra West Member ID: [id number] Relation to Subscriber: Self Name: Alexandra West Subscriber ID: [id number] Payer ID: Not on file Type: Not on file Address: [address] [place] [id number] BCBS BCBS [id number] 2023-Present [phone] [address] [place] [id number]-pbq73-88-1017 [id number] 2.16.840.1.056975.3.57[id number] 2.16.840.1.130504.3.57[id number] 2.16.840.1.498860.3.57[id number] 2.16.840.1.256480.3.57[id number] 2.16.840.1.005349.3.57[id number] 2.16.840.1.598482.3.57[id number] 2.16.840.1.640097.3.57[id number] 2.16.840.1.866836.3.579.2.148600-97-5834Rbwg-mex06931775112-74-1237Ixdktud [id number] 2.16.840.1.626388.3.579.2.531UnknownAnthem / [id number] Social History DateTypeDetailFacilityStart: 03-27-2023 End: 03-79-8665Expkrbw smoking status NHISEx-smokerNOMS HealthcareHistory of tobacco useCurrent smokerNOMS HealthcareHistory of tobacco useCigarette Smoker [facility] HealthcareStart: 46-71-0542Aubwegzfi beverage intakeLifetime non-drinker (finding)[facility] HealthcareStart: 03-22-2023 End: 77-22-6103Pjuwrjo of Social functionNOMS HealthcareStart: 03-22-2023 End: 70-97-2287Aniizkragnu, Afraid, Rape, and Kick questionnaire [HARK][facility]S HealthcareWithin the last year, have you been afraid of your partner or ex-partner?NoNOMS HealthcareAre you now , , , , never or living with a partner?DivorcedNOMS HealthcareHow often to you have a drink containing alcohol?NeverNOMS HealthcareHow many standard drinks containing alcohol do you have on a typical day?Patient does not drinkNOMS HealthcareDo you feel stress - tense, restless, nervous, or anxious, or unable to sleep at night because yourmind is troubled all the time - these days [OSQ] Only a littleNOMS Healthcare(I/We) worried whether (my/our) food would run out before (I/we) got money to buy more.Never trueNOWI HealthcareIn the past 12 months, was there a time when you were not able to pay the mortgage or rent on time?YesS[facility] HealthcareStart: 71-22-3456Zxgquur CommentLast smoked : > 10 years [facility] HealthcareStart: 74-40-3892Kxhifpt Commentcaffeine intake : 1-2 cups per dayResearch Medical CenterStart: 95-09-6169Chb assigned at birthNot on [facility] HospitalSexFemale ([facility] Systemtart: 1970 [facility] Evaluation note Note Date & TypeNoteFacilityEvaluation note* Diagnosis Hamstring injury, left, subsequent encounter- Primary Dermatitis Contact dermatitis and other eczema, due to unspecified cause Chronic lumbosacral pain- Primary Hamstring injury, left, subsequent encounter Female stress incontinence Chronic obstructive pulmonary disease, unspecified COPD type ([facility]/HCC) Seasonal allergic rhinitis due to pollen Chronic superficial gastritis without bleeding Primary insomnia Persistent disorder of initiating or maintaining sleep Morbid obesity due to excess calories (CMS/HCC) Body mass index [BMI] 45.0-49.9, adult (Z68.42) Female stress incontinence documented in this encounter [facility] Evaluation note Note Date & TypeNoteFacilityEvaluation note* Diagnosis Hamstring injury, left, subsequent encounter- Primary Dermatitis Contact dermatitis and other eczema, due to unspecified cause Chronic lumbosacral pain- Primary Hamstring injury, left, subsequent encounter Female stress incontinence Chronic obstructive pulmonary disease, unspecified COPD type (CMS/HCC) Seasonal allergic rhinitis due to pollen Chronic superficial gastritis without bleeding Primary insomnia Persistent disorder of initiating or maintaining sleep Morbid obesity due to excess calories ([facility]) Body mass index [BMI] 45.0-49.9, adult (Z68.42) Insomnia, unspecified Persistent insomnia documented in this encounter [facility] Evaluation note Note Date & TypeNoteFacilityEvaluation note* Diagnosis Insomnia, unspecified Persistent insomnia documented in this encounter [facility] Evaluation note Note Date & TypeNoteFacilityEvaluation note* Diagnosis Hamstring injury, left, subsequent encounter- Primary Dermatitis Contact dermatitis and other eczema, due to unspecified cause Chronic lumbosacral pain- Primary Hamstring injury, left, subsequent encounter Female stress incontinence Chronic obstructive pulmonary disease, unspecified COPD type ([facility]) Seasonal allergic rhinitis due to pollen Chronic superficial gastritis without bleeding Primary insomnia Persistent disorder of initiating or maintaining sleep Morbid obesity due to excess calories ([facility]) Body mass index [BMI] 45.0-49.9, adult (Z68.42) Insomnia, unspecified Persistent insomnia documented in this encounter [facility] Evaluation note Note Date & TypeNoteFacilityEvaluation note* Diagnosis Onset Date Resolution Status Admit Date [facility] Work Phone: Reason for referral (narrative) Note Date & TypeNoteFacilityReason for referral (narrative)No reason for referral information availableElyria Memorial Hospital Work Phone: Summary Purpose Family History No Family History Records FoundNo Family History Records FoundNo Family History Records FoundNo Family History Records Found Advance Directives Advance Directive Response Recorded Date/ Time Advance Directives No January 31, 2023 4:04pm Chief Complaint and Reason for Visit Chief Complaint Admit Date 6M December 10, 2024 9 :44am Reason for Visit Admit Date Annual physical exam December 10, 2024 9:44am Additional Source Comments INFORMATION SOURCE (unrecogn ized section and content) DATE CREATED AUTHOR 10/28/2019 [facility] DATE CREATED AUTHOR AUTHOR'S ORGANIZ ATION 12/06/2021 [facility] DATE CREATED AUTHOR AUTHOR'S ORGANIZ ATION 02/09/2023 [facility] DATE CREATED AUTHOR AUTHOR'S ORGANIZ ATION 05/07/2023 [facility] EPIC Reason for Visit (unrecogniz ed section and content) ReasonOnset DateCommentsMed [id number] Refill Care Teams (unrecognized sec tion and content) Team MemberRelationshipSpecialtyStart DateEnd Date Lavon Lam MD [address] [place] [address] PCP - [facility]05/07/23 Lavon Lam MD [address] [place] [address] PCP - [facility]08/27/23Te MemberRelationshipSpecialtyStart DateEnd Date Lavon Lam MD [address] [place] [address] [facility]05/07/23 Lavon Lam MD [address] [place] [address] [facility]08/27/23Te MemberRelationshipSpecialtyStart DateEnd Date Lavon Lam MD [address] [place] [address] PCP - [facility]05/07/23 Lavon Lam MD [address] [place] [address] [facility]08/27/23Team MemberRelationshipSpecialtyStart DateEnd Date Lavon Lam MD [address] [place] [address] [facility]/23Team MemberRelationshipSpecialtyStart DateEnd Date Lavon Lam MD [address] [place] [address] PCP - [facility]05/07/23 Team Status: Active Member Role Status Dates Lavon Lam MD Primary Care Provider Active Team Status: Inactive Member Role Status Dates Lavon Lam MD Primary Care Provider Active S tart: December 10, 2024 End: December 10, 2024Mar ALBERTO Lamttending ProviderActiveStart: December 10, 2024 End: December 10, 2024 Goals (unrecognized section and content) Goals may be documented in a n alternate section FOR RECORDS PERTAINING TO PATIENTS WHO ARE [...] BE BASED ON THE PRIMARY CLINICAL RECORDS. [employer] [facility]. provides no warranty or guarantee of the accuracy or completeness of information in this document.
--- OUTSIDE RECORDS SUMMARY | 2025-01-17 11:39 | XMS_ITS | Clinical Summary ---
Author Organization [facility] Address [address] [place] [address] Care Team Providers Care Pathological Technician Name Role Phone Lavon Simon MD Primary Care Provider [phone] Allergies No known active allergies Medications MedicationSigDispense QuantityRefillsLast FilledStart DateEnd DateStatus albuterol (2.5 MG/3ML) 0.083% nebulizer solution Indications:Chronic obstructive pulmonary disease, unspecified COPD type (HCC) Take 3 mL (2.5 mg) by nebulization every 4 (four) hours if needed for wheezing. 100 mL ctive albuterol HFA 90 mcg/act inhaler Indications:Chronic obstructive pulmonary disease, unspecified COPD type (HCC) Inhale 2 puffs every 4 (four) hours if needed for wheezing. 18 g 3Active fluticasone (Flonase) 50 MCG/ACT nasal spray Indications:Seasonal allergic rhinitis due to pollenAdminister 2 sprays into each nostril Daily Shake gently. Before first use, prime pump. After use, clean tip and replace cap. 16 g 5Active fexofenadine (Yane) 180 MG tablet Indications:Seasonal allergic rhinitis due to pollenTake 1 tablet by mouth once daily 30 tablet 5Active solifenacin (VESIcare) 10 MG tablet Indications:Female stress incontinenceTake 1 tablet by mouth once daily 30 tablet 5Active methocarbamol (Robaxin) 750 MG tablet Indications:FibromyalgiaTake 1 tablet by mouth three times daily as needed for muscle spasm 90 tablet 5Active zolpidem (Ambien) 10 MG tablet Indications:Insomnia, unspecified,Persistent insomniaTAKE 1 TABLET BY MOUTH AT BEDTIME 30 tablet 5Active etodolac (Lodine) 200 MG capsule Indications:Epigastric painTAKE 1 CAPSULE BY MOUTH ONCE DAILY IN THE MORNING THEN TAKE 1 CAPSULE BEFORE BEDTIME 60 capsule 5Active Active Problems ProblemNoted DateDiagnosed DateMorbid obesity due to excess xsdjgbpa82/11/2024 Migraine without aura and with status migrainosus, not rlsfofqxefk45/11/2024 Seasonal allergic rhinitis due to yirfcj1205/07/2023 Assessment & Plan (07/26/2023 11:36 AM EDT): Symptoms controlled with medication and continue. Hamstring injury, left, subsequent ucwofocqf14/11/2024 Assessment & Plan (07/26/2023 11:36 AM EDT): Pain improved and continue PT exercises. Assessment & Plan (05/07/2023 10:11 AM EDT): Recent injury and now stiffness. Start PT. Chronic gastritis without nbudflvg39/01/2024 Assessment & Plan (07/26/2023 11:35 AM EDT): Mild symptoms and use omeprazole PRN. Chronic lumbosacral pain03/29/2023 Assessment & Plan (07/26/2023 11:36 AM EDT): Pain stable and continue medication. Continue walking and exercises. Chronic pain of right knee03/29/2023OPD (chronic obstructive pulmonary disease) 03/29/2023 Assessment & Plan (07/26/2023 11:35 AM EDT): SOB stable and use albuterol PRN. Epigastric pain03/29/20231750Lrhwwqttltyp72/01/2024rimary hffisrkt53/01/2024 Assessment & Plan (07/26/2023 11:36 AM EDT): Sleeping well with ambien and continue. Intramural leiomyoma of gtwogf1103/29/2023Irritable bowel syndrome with diarrhea 03/29/2023Obstructive sleep apnea03/29/2023rimary osteoarthritis of both hips 03/29/2023ight lateral yfjgxaunssevr75/01/5605Npkylfp54/01/2024Female stress vqphuyukdasr53/01/2024 Assessment & Plan (07/26/2023 11:36 AM EDT): Symptoms controlled with vesicare. Resolved Problems ProblemNoted DateDiagnosed DateResolved XwacUecsjucgvh18/11/202405/ Assessment & Plan (05/07/2023 10:11 AM EDT): Rash related to dry skin. Start prednisone and steroid cream. Use lotion several times a day. Acute URI Encounters DateTypeDepartmentCare SxgdXuvoqchepds14/26/2025Refill [facility] [address] [place] [address] Lavon Simon MD Epigastric pain10/19/2024Refill [facility] [address] [place] [address] Lavon Simon MD Insomnia, unspecified; Persistent insomniafrom Last 3 Months Family History Medical HistoryRelationNameCommentsUlcerative colitisMotherliver failureMother RelationNameStatusCommentsFatherDeceasedMotherAlive Social History Tobacco UseTypesPacks/DayYears UsedDateSmoking Tobacco: FormerCigarettes Tobacco Cessation:Counseling Given: Not Answered Comments:Last smoked : > 10 years Alcohol UseStandard Drinks/WeekCommentsNever0 (1 standard drink = 0.6 oz pure alcohol)caffeine intake : 1-2 cups per dayHumiliation, Afraid, Rape, and Kick questionnaireAnswerDate RecordedWithin the last year, have you been afraid of your partner or ex-partner?No03/22/2023Within the last year, have you been humiliated or emotionally abused in other ways by your partner or ex-partner?No 03/22/2023Within the last year, have you been kicked, hit, slapped, or otherwise physically hurt by your partner or ex-partner?No03/22/2023Within the last year, have you been raped or forced to have any kind of sexual activity by your part ner or ex-partner?No03/22/2023Social Connection and Isolation PanelAnswerDate RecordedIn a typical week, how many times do you talk on the phone with family, friends, or neighbors?More than three times a week03/22/2023How often do you get together with friends or relatives?Once a week03/22/2023How often do you attend presybeterian or jewish services?Never03/22/2023o you belong to any clubs or organizations such as presybeterian groups, unions, fraXVionics or athletic groups, or school groups?No03/22/2023How often do you attend meetings of the clubs or organizations you belong to?Never03/22/2023re you , , , , never , or living with a partner?Uaooatvo27/25/2024UDIT-C AnswerDate RecordedQ1: How often do you have a drink containing alcohol?Never 03/22/2023Q2: How many drinks containing alcohol do you have on a typical day when you are drinking?Patient does not drink03/22/2023Q3: How often do you have six or more drinks on one occasion?Never03/22/2023Overall Financial Resource Strain (CARDIA)AnswerDate RecordedHow hard is it for you to pay for the very basics like food, housing, medical care, and heating?Not hard at all03/22/2023 [place] [facility] [employer] - Occupational Stress Questionnaire AnswerDate RecordedDo you feel stress - tense, restless, nervous, or anxious, or unable to sleep at night because yourmind is troubled all the time - these days? Only a ainydd9403/22/2023Exercise Vital SignAnswerDate RecordedOn average, how many days per week do you engage in moderate to strenuous exercise (like a brisk walk)?5 days03/22/2023On average, how many minutes do you engage in exercise at this level?30 min03/22/2023Hunger Vital SignAnswerDate RecordedWithin the past 12 months, you worried that your food would run out before you got the money to buymore.Never true03/22/2023Within the past 12 months, the food you bought just didn't last and you didn't have money to get more.Never true03/22/2023RAPARE - TransportationAnswerDate RecordedIn the past 12 months, has lack of transportation kept you from medical appointments or from getting medications?No 03/22/2023In the past 12 months, has lack of transportation kept you from meetings, work, or from getting things needed for daily living?No03/22/2023 Housing Stability Vital SignAnswerDate RecordedIn the last 12 months, was there a time when you were not able to pay the mortgage or rent on time?Yes03/22/2023 In the last 12 months, how many places have you lived?In the last 12 months, was there a time when you did not have a steady place to sleep or slept in [facility] (including now)?No03/22/2023CommentsUnknownSex and Gender InformationValueDate RecordedSex Assigned at BirthNot on fileLegal SexFemale 05/10/2022 7:40 PM EDTGender IdentityNot on fileSexual OrientationNot on file Last Filed Vital Signs Vital SignReadingTime TakenCommentsBlood Ctulcxow351/8005 11:12 AM EDT Wvtie186107/26/2023 11:12 AM SZUGgqmlzxgnnr53.4 ??C (97.5 ??F)07/26/2023 11:12 AM EDTRespiratory Gutw217907/26/2023 11:12 AM EDTOxygen Fgcynnmydu55%07/26/2023 11:12 AM EDTInhaled Oxygen Concentration--Yguqpx856 kg (309 lb)07/26/2023 11:12 AM EDT Vtbqwq956.6 cm (5' 6 )07/26/2023 11:12 AM EDTBody Mass Index49.8707/26/2023 11:12 AM EDT Plan of Treatment Not on file Insurance Care Teams Team MemberRelationshipSpecialtyStart DateEnd Date Lavon Simon MD PCP - GeneralFamily Medicine05/07/23
--- OUTSIDE RECORDS SUMMARY | 2025-01-17 11:39 | XMS_ITS | Clinical Summary ---
Author Organization [facility] tem Address [facility] [place] [address] Care Team Providers Care Clothing Patternmaker Name Role Phone Lavon Simon MD Primary Care Provider [phone] Social History Tobacco UseTypesPacks/DayYears UsedDateSmoking Tobacco: Never AssessedChildcare AnswerDate GbumswhmZvrxtwqbpKjfsyjy71/12/2019EmploymentAnswerDate Recorded XqcrtrpcwwBgyuqsf76/12/2019Purpose - LifeAnswerDate RecordedPurpose and direction in lawhLisfdaq48/11/2021CommentsUnknownSex and Gender InformationValueDate RecordedSex Assigned at BirthNot on fileLegal SexFemale 10/01/2014 12:10 PM EDTGender IdentityNot on fileSexual OrientationNot on file Plan of Treatment Health MaintenanceDue DateLast DoneCommentsDepression Htsetfton86/18/1984Tobacco Yirjxxidf83/18/1984Adult BMI Ecpgnmlxg76/18/1990DTaP,Tdap and Td Vaccines (1 - Tdap)05/13/1990Pap Smear05/13/1992Zoster (Shingles) Vaccine (1 of 2)05/13/2021 Influenza Pimyetj6710/27/2024 Medical Devices Not on file Insurance Care Teams Team MemberRelationshipSpecialtyStart DateEnd Date [facility] Simon [facility]
--- OUTSIDE RECORDS SUMMARY | 2025-01-17 11:39 | XMS_ITS | Patient Health Record ---
Author Organization [facility] Address [address] [place] [address] Care Team Providers Care Mergers And Acquisitions Manager Name Role Phone Angie Haines Primary Care Provider [phone] Allergies Allergen (clinical drug ingredient) Drug/Non Drug Allergy documented on EMR Reaction Allergy Type Onset Date Status sumatriptan IMITREX (uncoded) stomach upset Allergy Active Reason For Referral No Information Medications Medication SIG (Take, Route, Frequency, Duration) Notes Start Date End Date Status Advair Diskus 250-50 MCG/DOS E Aerosol Powder Breath Activated 1 puff Inhalation Twice a day; Duration: 30 days 05/15/2012ctiveAlbuterol Sulfate HFA 108 (90 Base) MCG/ACT Aerosol Solution2 puffs as needed Inhalation every 4 hrs; Duration: 30 days05/15/2012ctive Albuterol Sulfate (2.5 MG/3ML) 0.083% Nebulization Solution3 ml Inhalation Three times a day; Duration: 30 days05/15/2012ctivepredniSONE 10 MG Kitas directed OrallyActiveDoxycycline Hyclate 100 MG Tablet Delayed Release1 tablet on an empty stomach Orally Twice a day; Duration: 10 day(s)Active Social History Section Notes: 1/2 PPD, 11 YEARS TOTAL - NE EVIOUSLY QUIT FOR 13 YEARS 1/2 PPD, 11 YEARS TOTAL - NE EVIOUSLY QUIT FOR 13 YEARS 1/2 PPD, 11 YEARS TOTAL - NE EVIOUSLY QUIT FOR 13 YEARS 1/2 PPD, 11 YEARS TOTAL - NE EVIOUSLY QUIT FOR 13 YEARS Problems Problem Type SNOMED Code ICD Code Onset Dates Problem Status W/U Status Risk Notes Problem Migraine (99339240) Migraine, un specified without mention of intractable migraine without mention of status migrainosus (346.90) ActiveconfirmedProblemEsophageal reflux (028267303)Esophageal reflux (530.81) ActiveconfirmedProblemInsomnia (898296131)Insomnia, unspecified (780.52)Active confirmed Plan Of Treatment No Information Insurance Providers Payer Name Payer Address Payer Phone Subscriber Number Group Number Insured Name Patient Relationship to Insured Coverage Start Date Coverage End Date [facility] [address] [place] [address] [id number] CANDIDO SWAINelf - patient is the [id number] [facility] [address] [place] [id number] SWAINelf - patient is the insured Medical (General) History Medical History History ICD Code MIGRAINES HyperlipidemiaSurgical History Surgery Date(Month/Year) x2 2010 TONSILLECTOMY CHILDHOOD TUBAL LIGATION 2010
== END 2025-01-17 12:15 | disposition home or self-care (01) ==
PROVIDERS: Emergency Provider Emergency Medicine; PCP Family Medicine
DX: M25.562 Pain in left knee (principal); Z87.891 Personal history of nicotine dependence
CPT/HCPCS: 73564; 96372; 99284; J1885